=== PATIENT | male | born 1950 | race Caucasian/White ===

== ENCOUNTER 2021-02-18 09:55 | Day surgery (SDC) | payer BC, MEDICARE ==
[~2021-02-18] VITALS: Ht 180.3 cm; Wt 101.5 kg
[2021-02-18] VITALS (14 sets, daily range): BP systolic 102–139; BP diastolic 62–85
[2021-02-18] MEDS ORDERED: LORazepam 0.5 MG tablet PO ONE (10:20)
[2021-02-18] MEDS ORDERED: amiodarone 150mg/dext, iso-os 100 ML IV ONE (10:20)
[2021-02-18] MEDS ORDERED: atropine 0.1mg/ml 10ml syringe IV ONE (10:20)
[2021-02-18] MEDS ORDERED: diphenhydrAMINE 25mg capsule PO ONE (10:20)
[2021-02-18] MEDS ORDERED: MIDAZolam 1mg/ml 10ml vial IV ONE (10:20)
[2021-02-18] MEDS ORDERED: normal saline 1000ml 1,000 ML IV SCH (10:20)
[2021-02-18] MEDS ORDERED: morphine 10mg/ml inj. IV ONE ×2 (10:20→10:55)
[2021-02-18] MEDS ORDERED: METF-900 PO (10:47)
[2021-02-18] MEDS ORDERED: METH2.5T PO (10:47)
[2021-02-18] MEDS ORDERED: LIRA0.6P2 SUBCUT (10:47)
[2021-02-18] MEDS ORDERED: APIX5TAB3 PO (10:47)
[2021-02-18] MEDS ORDERED: SENN-263 PO (10:47)
[2021-02-18] MEDS ORDERED: CARV6.253 PO (10:47)
[2021-02-18] MEDS ORDERED: LEVE500T99 PO (10:47)
[2021-02-18] MEDS ORDERED: AMIO200T39 PO (10:47)
[2021-02-18] MEDS ORDERED: FAMO40TA58 PO (10:47)
[2021-02-18 10:52] LABS: EOSINOPHILS # (AUTO) 0.1 X10'3 (0-0.9); EOSINOPHILS % (AUTO) 1.6 % (0-6); HEMATOCRIT 27.9 % (42.0-52.0); HEMOGLOBIN 9.3 g/dl (14.0-17.9); LYMPHOCYTES # (AUTO) 1.3 X10'3 (1.1-4.8); MEAN CORPUSCULAR HEMOGLOBIN 34.2 PG (27.0-31.0); MEAN CORPUSCULAR HGB CONC 33.5 g/dL (33.0-36.5); MEAN CORPUSCULAR VOLUME 101.9 FL (78-98); MEAN PLATELET VOLUME 7.6 FL (7.4-10.4); MONOCYTES # (AUTO) 0.2 X10'3 (0-0.9); NEUTROPHILS # (AUTO) 2.2 X10'3 (1.8-7.7); NEUTROPHILS % (AUTO) 59.4 % (42-75); PLATELET COUNT 186 X10'3 (140-440); RED BLOOD COUNT 2.73 X10'6 (4.70-6.10); RED CELL DISTRIBUTION WIDTH 17.1 % (11.5-14.5); WHITE BLOOD COUNT 3.8 X10'3 (4.5-11.0)
[2021-02-18] MEDS ORDERED: CLON1PAT15 TOP (10:53)
[2021-02-18 10:58] LABS: ANION GAP 10 (8-16); BLOOD UREA NITROGEN 23 MG/DL (7-18); CALCIUM 8.4 MG/DL (8.5-10.1); CHLORIDE 102 MMOL/L (99-107); CREATININE 1.77 MG/DL (0.60-1.10); GLUCOSE 120 MG/DL (70-104); POTASSIUM 4.4 MMOL/L (3.5-5.1); SODIUM 137 MMOL/L (135-145); TOTAL CARBON DIOXIDE 24.7 MMOL/L (24-32); eGFR 38 ML/MIN
[2021-02-18] MEDS ORDERED: pneumococcal 23-VAL P-sac vacc 25 mcg/0.5ml vial IMVAC ONE (11:40)
== END 2021-02-18 13:45 | disposition home or self-care (01) ==
LOC: SSTAY O 09:55
PROVIDERS: ATTEND Internal Medicine Cardiovascular Disease
DX: I48.92 Unspecified atrial flutter (principal); E11.22 Type 2 diabetes mellitus with diabetic chronic kidney disease; I12.9 Hypertensive chronic kidney disease with stage 1 through stage 4 chronic kidney disease, or unspecified chronic kidney disease; N18.30 Chronic kidney disease, stage 3 unspecified; K21.9 Gastro-esophageal reflux disease without esophagitis; E78.5 Hyperlipidemia, unspecified; G47.33 Obstructive sleep apnea (adult) (pediatric); Z86.010 Personal history of colon polyps; M19.90 Unspecified osteoarthritis, unspecified site; M06.9 Rheumatoid arthritis, unspecified; N40.0 Benign prostatic hyperplasia without lower urinary tract symptoms; I49.5 Sick sinus syndrome; E55.9 Vitamin D deficiency, unspecified; Z86.718 Personal history of other venous thrombosis and embolism; Z86.711 Personal history of pulmonary embolism; Z79.4 Long term (current) use of insulin; Z79.899 Other long term (current) drug therapy; Z98.41 Cataract extraction status, right eye; Z98.42 Cataract extraction status, left eye; Z98.890 Other specified postprocedural states; Z23 Encounter for immunization
CPT/HCPCS: 36415; 80048; 82948; 85025; 90471; 90732; 92960; 93005; 94799; J0461; J2250; J2270; J7030

== ENCOUNTER 2021-03-09 14:29 | Emergency (ER) | payer BC, MEDICARE ==
[~2021-03-09] VITALS: Ht 172.7 cm; Wt 103.0 kg
[~2021-03-09 14:29] MED LIST: AMIO200T39 PO; APIX5TAB3 PO; CARV6.253 PO; CLON1PAT15 TOP; FAMO40TA58 PO; LEVE500T99 PO; LIRA0.6P2 SUBCUT; METF-900 PO; METH2.5T PO; SENN-263 PO
[2021-03-09 15:52] LABS: BASOPHILS % (AUTO) 0.3 % (0-1); EOSINOPHILS # (AUTO) 0.3 X10'3 (0-0.9); HEMATOCRIT 31.8 % (42.0-52.0); HEMOGLOBIN 10.5 g/dl (14.0-17.9); LYMPHOCYTES # (AUTO) 1.4 X10'3 (1.1-4.8); LYMPHOCYTES % (AUTO) 16.8 % (21-51); MEAN CORPUSCULAR HEMOGLOBIN 34.3 PG (27.0-31.0); MEAN CORPUSCULAR VOLUME 104.1 FL (78-98); MEAN PLATELET VOLUME 7.5 FL (7.4-10.4); MONOCYTES % (AUTO) 0.6 % (2-12); NEUTROPHILS # (AUTO) 6.6 X10'3 (1.8-7.7); NEUTROPHILS % (AUTO) 79.3 % (42-75); PLATELET COUNT 238 X10'3 (140-440); RED BLOOD COUNT 3.06 X10'6 (4.70-6.10); RED CELL DISTRIBUTION WIDTH 15.7 % (11.5-14.5); WHITE BLOOD COUNT 8.4 X10'3 (4.5-11.0)
[2021-03-09 16:04] LABS: ALANINE AMINOTRANSFERASE 40 U/L (12-78); ALBUMIN 3.2 G/DL (3.4-5.0); ALBUMIN/GLOBULIN RATIO 0.8 (1.1-1.5); ALKALINE PHOSPHATASE 136 IU/L (46-116); ANION GAP 9 (8-16); ASPARTATE AMINO TRANSFERASE 37 U/L (10-37); BILIRUBIN,TOTAL 0.9 MG/DL (0.1-1.0); BLOOD UREA NITROGEN 29 MG/DL (7-18); BUN/CREATININE RATIO 16.4 (5.4-32.0); CALCIUM 8.4 MG/DL (8.5-10.1); CHLORIDE 103 MMOL/L (99-107); CREATININE 1.77 MG/DL (0.60-1.10); GLUCOSE 136 MG/DL (70-104); POTASSIUM 4.4 MMOL/L (3.5-5.1); SODIUM 139 MMOL/L (135-145); TOTAL CARBON DIOXIDE 27.1 MMOL/L (24-32); TOTAL PROTEIN 7.3 G/DL (6.4-8.2); eGFR 38 ML/MIN
--- NOTE | 2021-03-09 17:12 | NUR ---
PATIENT AMBULATED WITH PULSE OXIMETER INTACT. HR FROM 60-77 AND O2 SAT 92-99% DURING ACTIVITY. TOLERATED WELL. ASSISTED BACK TO [facility] WITH AT BEDSIDE.
[2021-03-09 17:34] VITALS: BP 122/66
== END 2021-03-09 17:36 | disposition home or self-care (01) ==
LOC: ER 14:30
DX: R00.1 Bradycardia, unspecified (principal); Z20.822 Contact with and (suspected) exposure to COVID-19; R06.02 Shortness of breath; R53.1 Weakness; R53.83 Other fatigue; I48.91 Unspecified atrial fibrillation; E11.9 Type 2 diabetes mellitus without complications; Z86.711 Personal history of pulmonary embolism; Z86.718 Personal history of other venous thrombosis and embolism; Z79.899 Other long term (current) drug therapy
CPT/HCPCS: 36415; 71045; 80053; 83880; 84484; 85025; 87635; 93005; 99285; C9803

== ENCOUNTER 2021-03-24 13:17 | Inpatient (IN) | payer BC, MEDICARE ==
[~2021-03-24] VITALS: Ht 172.7 cm; Wt 110.1 kg
--- NOTE | 2021-03-24 14:03 | NUR ---
[id number]
[2021-03-24 14:20] LABS: BASOPHILS % (AUTO) 0.6 % (0-1); EOSINOPHILS # (AUTO) 0.1 X10'3 (0-0.9); EOSINOPHILS % (AUTO) 11.7 % (0-6); HEMATOCRIT 23.7 % (42.0-52.0); HEMOGLOBIN 7.8 g/dl (14.0-17.9); LYMPHOCYTES # (AUTO) 0.5 X10'3 (1.1-4.8); LYMPHOCYTES % (AUTO) 58.1 % (21-51); MEAN CORPUSCULAR HEMOGLOBIN 33.9 PG (27.0-31.0); MEAN CORPUSCULAR HGB CONC 32.8 g/dL (33.0-36.5); MEAN CORPUSCULAR VOLUME 103.3 FL (78-98); MEAN PLATELET VOLUME 9.1 FL (7.4-10.4); MONOCYTES % (AUTO) 1.7 % (2-12); NEUTROPHILS # (AUTO) 0.3 X10'3 (1.8-7.7); NEUTROPHILS % (AUTO) 27.9 % (42-75); RED BLOOD COUNT 2.29 X10'6 (4.70-6.10); RED CELL DISTRIBUTION WIDTH 15.7 % (11.5-14.5)
[2021-03-24 14:32] LABS: PLATELET COUNT 50 X10'3 (140-440); WHITE BLOOD COUNT 0.9 X10'3 (4.5-11.0)
[2021-03-24 14:35] LABS: ALANINE AMINOTRANSFERASE 28 U/L (12-78); ALBUMIN/GLOBULIN RATIO 0.7 (1.1-1.5); ALKALINE PHOSPHATASE 126 IU/L (46-116); ANION GAP 12 (8-16); ASPARTATE AMINO TRANSFERASE 13 U/L (10-37); BILIRUBIN,TOTAL 0.9 MG/DL (0.1-1.0); BLOOD UREA NITROGEN 66 MG/DL (7-18); BUN/CREATININE RATIO 14.9 (5.4-32.0); CALCIUM 8.9 MG/DL (8.5-10.1); CHLORIDE 103 MMOL/L (99-107); CREATININE 4.42 MG/DL (0.60-1.10); GLUCOSE 127 MG/DL (70-104); POTASSIUM 5.4 MMOL/L (3.5-5.1); SODIUM 133 MMOL/L (135-145); TOTAL CARBON DIOXIDE 18.1 MMOL/L (24-32); TOTAL PROTEIN 7.2 G/DL (6.4-8.2); eGFR 13 ML/MIN
[2021-03-24 14:48] LABS: PLATELET ESTIMATE DECREASED; TOTAL CELLS COUNTED 100
[2021-03-24 14:49] LABS: ANISOCYTOSIS 1+; BURR CELLS FEW; ELLIPTOCYTES FEW
[2021-03-24 14:50] LABS: SCHISTOCYTES FEW; TEAR DROP CELLS FEW
[2021-03-24] MEDS ORDERED: normal saline 1000ML IV soln IVB ONE (15:40)
--- NOTE | 2021-03-24 16:04 | NUR ---
PT NOW TO ROOM, ASSUMED CARE. PT STRAIGHT TO CT.
--- NOTE | 2021-03-24 16:17 | NUR ---
PT RETURNS FROM CT
--- NOTE | 2021-03-24 16:34 | NUR ---
BROUGHT PT TO ER DUE TO SEVERE WEAKNESS AND DIZZINESS TODAY. PT APPEARS PALE. AWAITING PACEMAKER
[2021-03-24] MEDS ORDERED: ondansetron/PF 4mg/2ml inj IV PRN (17:00)
[2021-03-24] MEDS ORDERED: HYDROcodone/acetaminophen 10/325mg tab PO PRN (17:00)
[2021-03-24] MEDS ORDERED: magnesium hydroxide 30ml (MOM) UD suspension PO PRN (17:00)
[2021-03-24] MEDS ORDERED: acetaminophen 325mg tablet PO PRN ×2 (17:00)
[2021-03-24] MEDS ORDERED: HYDROcodone/acetaminophen 5mg/325mg tablet PO PRN (17:00)
[2021-03-24] MEDS ORDERED: mag hydrox/Alum hydrox/simeth 30ml oral suspension PO PRN (17:00)
[2021-03-24] MEDS: normal saline 1000ml 1,000 ML IV SCH (17:00)
[2021-03-24 17:08] LABS: CLARITY,URINE SLIGHTLY CLOUDY (Clear); COLOR,URINE YELLOW (Yellow); GLUCOSE, URINE NEGATIVE (Neg); KETONES,URINE NEGATIVE (Neg); LEUKOCYTE ESTERASE ,URINE NEGATIVE (Neg); NITRITES, URINE NEGATIVE (Neg); OCCULT BLOOD,URINE NEGATIVE (Neg); PROTEIN,URINE NEGATIVE (Neg); UROBILINOGEN,URINE 0.2 E.U/dL (0.2-1.0)
[2021-03-24 17:09] LABS: UA COLLECTION TYPE NON-SPECIFIED
[2021-03-24] MEDS ORDERED: APIX5TAB3 PO (17:15)
[2021-03-24] MEDS ORDERED: AMIO200T27 PO (17:15)
[2021-03-24] MEDS ORDERED: CARV6.253 PO (17:15)
[2021-03-24] MEDS ORDERED: LIRA0.6P2 SUBCUT (17:15)
[2021-03-24] MEDS ORDERED: FAMO40TA58 PO (17:15)
[2021-03-24] MEDS ORDERED: METH2.5T PO ×2 (17:15)
[2021-03-24 17:18] LABS: BACTERIA,URINE FEW /HPF (Neg); RBC,URINE 0-2 /HPF (0-2); SQUAMOUS EPITHELIAL CELL,UR NONE SEEN /LPF (FEW); WBC,URINE 0-4 /HPF (0-4)
[2021-03-24] MEDS ORDERED: LEVE500T PO (17:20)
[2021-03-24] MEDS ORDERED: DULO60CA65 PO (17:20)
[2021-03-24] MEDS ORDERED: PANT20TA18 PO (17:20)
[2021-03-24] MEDS ORDERED: FURO-149 PO (17:20)
[2021-03-24] MEDS ORDERED: POTA10TA36 PO (17:20)
[2021-03-24] MEDS ORDERED: QUET25TA34 PO (17:20)
--- NOTE | 2021-03-24 17:36 | NUR ---
PER ERP AND RENAL MD, ONLY RUN D5 W/SODIUM BICARB. STOP NS
[2021-03-24] MEDS: sodium bicarbonate (8.4%) inj. 100 MEQ in dextrose 5%-water 1,000 ML IV SCH (17:37)
--- NOTE | 2021-03-24 17:38 | NUR ---
FIRST 1L BAG OF D5 W/SODIUM BICARB RUNNING. TOTAL 2200 NEEDED.
[2021-03-24] MEDS ORDERED: atropine 1 MG/1 ML vial IV PRN (17:45)
[2021-03-24] MEDS ORDERED: atropine 0.1mg/ml 10ml syringe IV PRN (17:55)
[2021-03-24] MEDS ORDERED: dextrose 50%-water 50ml dispensing syringe IV PRN ×2 (18:15)
[2021-03-24] MEDS ORDERED: dextrose ORAL solution 15 GM/59 ML bottle PO PRN ×2 (18:15)
[2021-03-24] MEDS ORDERED: MESSAGE TO PHARMACY PO ONE (18:15)
[2021-03-24] MEDS ORDERED: glucagon, human recombinant 1mg kit SUBCUT PRN (18:15)
--- NOTE | 2021-03-24 18:24 | NUR ---
PT FEELING DIZZY AFTER RETURNING FROM CT. WILL MEDICATED WITH PRN ATROPINE
[2021-03-24 18:28] LABS: TOTAL PROTEIN,URINE RANDOM 28.6 MG/DL
--- NOTE | 2021-03-24 18:51 | NUR ---
covid swab sent to lab
[2021-03-24 19:45] LABS: UA EOSINOPHILS NO EOS /HPF
--- NOTE | 2021-03-24 19:55 | NUR ---
, YIN, AT BEDSIDE. PT SLEEPING PEACFULLY. HR 59 AFTER RECEIVING DOSE OF ATROPINE 30 MIN AGO. AWAITING IPA. OTHER VSS.
[2021-03-24 19:59] LABS: OCCULT BLOOD STOOL NEGATIVE (Neg)
[2021-03-24 20:15] LABS: HEMOGLOBIN A1C 7.6 % (4.5-6.2)
[2021-03-24] MEDS: insulin glargine (Lantus) pen - multi-dose SQ SCH (21:00)
[2021-03-24] MEDS ORDERED: temazepam 15mg capsule PO PRN (21:00)
--- NOTE | 2021-03-24 21:15 | NUR ---
received report from luiza molina rn over the phone
--- NOTE | 2021-03-24 21:30 | NUR ---
pt was brought in bed, pt ambulated from bed to room bed
--- NOTE | 2021-03-24 21:36 | NUR ---
pt brought up by zelda evans from er at 2129
[2021-03-24 22:07] VITALS: BP 160/76
--- NOTE | 2021-03-24 22:38 | NUR ---
pt first floor glucose 119
--- NOTE | 2021-03-24 23:18 | NUR ---
notified dr gomez to get order for seroquel and cpap
--- NOTE | 2021-03-24 23:26 | NUR ---
notified RT to come and set up cpap on pt
[2021-03-24] MEDS: nystatin 15 GM powder TP SCH (23:33)
[2021-03-24] MEDS: QUEtiapine 25mg tablet PO SCH (23:33)
[2021-03-24] MEDS: levetiracetam 250mg tablet PO SCH (23:33)
[2021-03-25] MEDS: sodium bicarbonate (8.4%) inj. 100 MEQ in dextrose 5%-water 1,000 ML IV SCH (01:03)
[2021-03-25 02:00] VITALS: BP 140/82
[2021-03-25 02:18] LABS: BASOPHILS % (AUTO) 0.3 % (0-1); EOSINOPHILS # (AUTO) 0.1 X10'3 (0-0.9); EOSINOPHILS % (AUTO) 10.4 % (0-6); HEMATOCRIT 22.6 % (42.0-52.0); HEMOGLOBIN 7.6 g/dl (14.0-17.9); LYMPHOCYTES # (AUTO) 0.6 X10'3 (1.1-4.8); LYMPHOCYTES % (AUTO) 50.8 % (21-51); MEAN CORPUSCULAR HEMOGLOBIN 34.3 PG (27.0-31.0); MEAN CORPUSCULAR HGB CONC 33.8 g/dL (33.0-36.5); MEAN CORPUSCULAR VOLUME 101.3 FL (78-98); MEAN PLATELET VOLUME 9.3 FL (7.4-10.4); MONOCYTES % (AUTO) 1.6 % (2-12); NEUTROPHILS # (AUTO) 0.4 X10'3 (1.8-7.7); NEUTROPHILS % (AUTO) 36.9 % (42-75); RED BLOOD COUNT 2.23 X10'6 (4.70-6.10); RED CELL DISTRIBUTION WIDTH 15.7 % (11.5-14.5); WHITE BLOOD COUNT 1.2 X10'3 (4.5-11.0)
[2021-03-25 02:27] LABS: ALANINE AMINOTRANSFERASE 23 U/L (12-78); ALBUMIN 2.8 G/DL (3.4-5.0); ALBUMIN/GLOBULIN RATIO 0.7 (1.1-1.5); ALKALINE PHOSPHATASE 116 IU/L (46-116); ANION GAP 12 (8-16); ASPARTATE AMINO TRANSFERASE 14 U/L (10-37); BILIRUBIN,TOTAL 0.8 MG/DL (0.1-1.0); BLOOD UREA NITROGEN 65 MG/DL (7-18); BUN/CREATININE RATIO 14.8 (5.4-32.0); CALCIUM 8.4 MG/DL (8.5-10.1); CHLORIDE 102 MMOL/L (99-107); GLUCOSE 146 MG/DL (70-104); POTASSIUM 4.9 MMOL/L (3.5-5.1); SODIUM 137 MMOL/L (135-145); TOTAL CARBON DIOXIDE 23.3 MMOL/L (24-32); TOTAL PROTEIN 6.8 G/DL (6.4-8.2); eGFR 13 ML/MIN
[2021-03-25 02:30] LABS: LACTATE DEHYDROGENASE 146 U/L (85-227); PHOSPHORUS 5.7 MG/DL (2.3-4.5)
[2021-03-25 02:31] LABS: PLATELET COUNT 44 X10'3 (140-440)
--- NOTE | 2021-03-25 02:44 | NUR ---
notified dr gomez about platelet count going from 50 to 44
[2021-03-25] MEDS: normal saline 1000ml 1,000 ML IV SCH ×3 (03:00→20:43)
--- NOTE | 2021-03-25 03:19 | NUR ---
held sodium chloride at 3am. pt already running sodium bicarb @ 150/ hr and pt does have an elevated PBNP
--- NOTE | 2021-03-25 06:11 | NUR ---
Problems reprioritized. Patient report given, questions answered & plan of care reviewed with PEYMAN SIMPSON .
--- NOTE | 2021-03-25 06:20 | NUR ---
Patient in room PCU 3016. I have received report from Imer SIMPSON and had the opportunity to ask questions and assume patient care.
[2021-03-25 07:00] VITALS: BP 108/84
[2021-03-25 08:42] LABS: ALANINE AMINOTRANSFERASE 20 U/L (12-78); ALBUMIN 2.8 G/DL (3.4-5.0); ALBUMIN/GLOBULIN RATIO 0.7 (1.1-1.5); ALKALINE PHOSPHATASE 112 IU/L (46-116); ANION GAP 12 (8-16); BILIRUBIN,TOTAL 0.7 MG/DL (0.1-1.0); BLOOD UREA NITROGEN 61 MG/DL (7-18); BUN/CREATININE RATIO 13.5 (5.4-32.0); CALCIUM 8.5 MG/DL (8.5-10.1); CHLORIDE 101 MMOL/L (99-107); CREATININE 4.51 MG/DL (0.60-1.10); GLUCOSE 157 MG/DL (70-104); POTASSIUM 4.3 MMOL/L (3.5-5.1); SODIUM 138 MMOL/L (135-145); TOTAL CARBON DIOXIDE 25.1 MMOL/L (24-32); TOTAL PROTEIN 6.7 G/DL (6.4-8.2); eGFR 13 ML/MIN
[2021-03-25 09:05] LABS: ASPARTATE AMINO TRANSFERASE 15 U/L (10-37)
[2021-03-25] MEDS: nystatin 15 GM powder TP SCH ×3 (09:43→20:43)
[2021-03-25] MEDS: levetiracetam 250mg tablet PO SCH ×2 (09:43→20:43)
[2021-03-25 10:37] LABS: PARTIAL THROMBOPLASTIN TIME 29 SECONDS (22-32)
[2021-03-25 11:00] VITALS: BP 103/60
[2021-03-25 11:15] LABS: TOTAL CELLS COUNTED 100
[2021-03-25 11:16] LABS: PLATELET ESTIMATE DECREASED
[2021-03-25 11:21] LABS: BURR CELLS FEW; ELLIPTOCYTES FEW; SCHISTOCYTES FEW
[2021-03-25 11:22] LABS: TEAR DROP CELLS FEW
--- NOTE | 2021-03-25 11:42 | NUR ---
Dr. Rojas and nurse at bedside with patient. aware that Bicarb was dcd NS @100 running. Continue to support patient in keeping lab numbers in good range. We will continue to monitor.
--- NOTE | 2021-03-25 13:54 | NUR ---
DM/Ky Consults "lactose intolerant on neutropenic diet and CC": Ky 12 w/ skin intact per EMR. Pt hx T2DM A1C 7.6 this admit per EMR. Pt admit w/ ALOC DX TATUM/CKD, severe pancytopenia, and neutropenia; currently AOx1 and hx dementia per EMR. Pt not appropriate for DM ed at this time given hx and ALOC. PO 75-100% first meal this admit. To provide initial assessment on above date. Addendum: 03/25/21 at [address] Amended: Links added.
[2021-03-25 15:00] VITALS: BP 101/54
[2021-03-25 18:00] VITALS: BP_SYST 153; BP_SYST 99; BP_DIAS 54; BP_DIAS 80
[2021-03-25] MEDS ORDERED: LIDOcaine 2% 10ml TOPICAL JELLY (Urojet) TP ONE (18:10)
--- NOTE | 2021-03-25 18:12 | NUR ---
Problems reprioritized. Patient report given, questions answered & plan of care reviewed with Susan SIMPSON.
[2021-03-25] MEDS: tamsulosin 0.4mg capsule PO SCH (20:43)
[2021-03-25] MEDS: QUEtiapine 25mg tablet PO SCH (20:43)
[2021-03-25] MEDS: insulin glargine (Lantus) pen - multi-dose SQ SCH (20:47)
[2021-03-25 22:00] VITALS: BP_SYST 117; BP_SYST 142; BP_DIAS 72; BP_DIAS 77
[2021-03-26 02:00] VITALS: BP 133/85
[2021-03-26 06:00] VITALS: BP 133/52
--- NOTE | 2021-03-26 06:48 | NUR ---
Patient in room PCU 3016. I have received report from TATIANA Davis and had the opportunity to ask questions and assume patient care.
[2021-03-26] MEDS: levetiracetam 250mg tablet PO SCH ×2 (07:52→20:14)
[2021-03-26 08:13] LABS: ALANINE AMINOTRANSFERASE 23 U/L (12-78); ALBUMIN 2.5 G/DL (3.4-5.0); ALBUMIN/GLOBULIN RATIO 0.7 (1.1-1.5); ALKALINE PHOSPHATASE 105 IU/L (46-116); ANION GAP 15 (8-16); ASPARTATE AMINO TRANSFERASE 14 U/L (10-37); BILIRUBIN,TOTAL 0.7 MG/DL (0.1-1.0); BLOOD UREA NITROGEN 62 MG/DL (7-18); BUN/CREATININE RATIO 13.1 (5.4-32.0); CALCIUM 8.4 MG/DL (8.5-10.1); CHLORIDE 103 MMOL/L (99-107); CREATININE 4.75 MG/DL (0.60-1.10); GLUCOSE 126 MG/DL (70-104); POTASSIUM 4.3 MMOL/L (3.5-5.1); SODIUM 137 MMOL/L (135-145); TOTAL CARBON DIOXIDE 19.3 MMOL/L (24-32); TOTAL PROTEIN 6.3 G/DL (6.4-8.2); eGFR 12 ML/MIN
[2021-03-26 08:48] LABS: BASOPHILS % (AUTO) 0.2 % (0-1); EOSINOPHILS # (AUTO) 0.2 X10'3 (0-0.9); EOSINOPHILS % (AUTO) 12.2 % (0-6); HEMATOCRIT 22.2 % (42.0-52.0); HEMOGLOBIN 7.5 g/dl (14.0-17.9); LYMPHOCYTES # (AUTO) 0.9 X10'3 (1.1-4.8); LYMPHOCYTES % (AUTO) 46.4 % (21-51); MEAN CORPUSCULAR HEMOGLOBIN 34.2 PG (27.0-31.0); MEAN CORPUSCULAR HGB CONC 33.8 g/dL (33.0-36.5); MEAN CORPUSCULAR VOLUME 101.2 FL (78-98); MEAN PLATELET VOLUME 8.2 FL (7.4-10.4); MONOCYTES # (AUTO) 0.1 X10'3 (0-0.9); MONOCYTES % (AUTO) 3.2 % (2-12); NEUTROPHILS # (AUTO) 0.7 X10'3 (1.8-7.7); RED BLOOD COUNT 2.19 X10'6 (4.70-6.10); RED CELL DISTRIBUTION WIDTH 15.8 % (11.5-14.5); WHITE BLOOD COUNT 1.9 X10'3 (4.5-11.0)
[2021-03-26 08:55] LABS: PLATELET COUNT 32 X10'3 (140-440)
[2021-03-26] MEDS: nystatin 15 GM powder TP SCH ×3 (08:55→20:14)
[2021-03-26] MEDS: normal saline 1000ml 1,000 ML IV SCH ×2 (09:00→21:56)
--- NOTE | 2021-03-26 09:08 | NUR ---
notified. PAGER ID: [phone] MESSAGE: [id number]. Mark Anthony Bae. Critical value; Plt is 32. Thanks ashley. [phone].
[2021-03-26 10:05] LABS: PLATELET ESTIMATE DECREASED; TOTAL CELLS COUNTED 100
[2021-03-26 10:11] LABS: ELLIPTOCYTES 1+; SCHISTOCYTES FEW
[2021-03-26 11:00] VITALS: BP 105/69
[2021-03-26 15:00] VITALS: BP 127/58
[2021-03-26 18:00] VITALS: BP 158/77
--- NOTE | 2021-03-26 18:15 | NUR ---
Patient in room PCU 3016. I have received report from TATIANA Jarrett and had the opportunity to ask questions and assume patient care.
--- NOTE | 2021-03-26 18:20 | NUR ---
Problems reprioritized. Patient report given, questions answered & plan of care reviewed with TATIANA Davis.
--- NOTE | 2021-03-26 18:30 | NUR ---
Patient in room PCU 3016. I have received report from Luiza SIMPSON and had the opportunity to ask questions and assume patient care.
--- NOTE | 2021-03-26 19:07 | NUR ---
Pts 1700 Blood sugar was 166, noon blood sugar was 193 qualifying him for the hyper/hypoglycemic protocol but the pts dinner tray was picked up and meal was not documented so I had no idea what meal percentage of each food was consumed. Pt is not A&O enough to recall meal consumption. Not initiating protocol at this time, will continue to monitor pt, I will recheck blood sugar at 2100 and reassess insulin administration at that time. Pt is awake and alert, verbal no s/s or c/o of discomfort at this time.
[2021-03-26] MEDS: tamsulosin 0.4mg capsule PO SCH (20:14)
[2021-03-26] MEDS: QUEtiapine 25mg tablet PO SCH (20:14)
[2021-03-26] MEDS: insulin glargine (Lantus) pen - multi-dose SQ SCH (21:21)
[2021-03-26 22:00] VITALS: BP 155/76
[2021-03-27 02:00] VITALS: BP 146/82
--- NOTE | 2021-03-27 04:25 | NUR ---
Orientee documentation: I have reviewed and agree with all interventions, assessments performed and documented by Jesus SIMPSON.
--- NOTE | 2021-03-27 05:38 | NUR ---
Student Medication Administration: For this medication-pass time frame [id number], all medication were reviewed, dispensed, administered and documented per hospital policy by Jesus SIMPSON.
[2021-03-27 06:00] VITALS: BP 177/89
--- NOTE | 2021-03-27 06:14 | NUR ---
Problems reprioritized. Patient report given, TATIANA Jarrett questions answered & plan of care reviewed with .
--- NOTE | 2021-03-27 06:30 | NUR ---
Patient in room PCU 3016. I have received report from Holley RN and had the opportunity to ask questions and assume patient care.
[2021-03-27] MEDS: levetiracetam 250mg tablet PO SCH ×2 (07:35→19:32)
[2021-03-27] MEDS: nystatin 15 GM powder TP SCH ×3 (07:37→22:01)
[2021-03-27 07:51] LABS: BASOPHILS % (AUTO) 0.3 % (0-1); EOSINOPHILS # (AUTO) 0.3 X10'3 (0-0.9); EOSINOPHILS % (AUTO) 16.2 % (0-6); HEMATOCRIT 22.5 % (42.0-52.0); HEMOGLOBIN 7.5 g/dl (14.0-17.9); LYMPHOCYTES # (AUTO) 0.7 X10'3 (1.1-4.8); LYMPHOCYTES % (AUTO) 38.8 % (21-51); MEAN CORPUSCULAR HEMOGLOBIN 34.2 PG (27.0-31.0); MEAN CORPUSCULAR HGB CONC 33.3 g/dL (33.0-36.5); MEAN CORPUSCULAR VOLUME 102.6 FL (78-98); MEAN PLATELET VOLUME 8.5 FL (7.4-10.4); MONOCYTES # (AUTO) 0.1 X10'3 (0-0.9); MONOCYTES % (AUTO) 5.7 % (2-12); NEUTROPHILS # (AUTO) 0.7 X10'3 (1.8-7.7); RED BLOOD COUNT 2.19 X10'6 (4.70-6.10); RED CELL DISTRIBUTION WIDTH 15.7 % (11.5-14.5); WHITE BLOOD COUNT 1.9 X10'3 (4.5-11.0)
[2021-03-27 08:15] LABS: PLATELET COUNT 36 X10'3 (140-440)
[2021-03-27 08:23] LABS: ALANINE AMINOTRANSFERASE 28 U/L (12-78); ALBUMIN 2.7 G/DL (3.4-5.0); ALBUMIN/GLOBULIN RATIO 0.7 (1.1-1.5); ALKALINE PHOSPHATASE 112 IU/L (46-116); ANION GAP 12 (8-16); ASPARTATE AMINO TRANSFERASE 13 U/L (10-37); BILIRUBIN,TOTAL 0.6 MG/DL (0.1-1.0); BLOOD UREA NITROGEN 63 MG/DL (7-18); BUN/CREATININE RATIO 11.6 (5.4-32.0); CALCIUM 8.6 MG/DL (8.5-10.1); CHLORIDE 106 MMOL/L (99-107); CREATININE 5.41 MG/DL (0.60-1.10); GLUCOSE 158 MG/DL (70-104); POTASSIUM 4.2 MMOL/L (3.5-5.1); SODIUM 140 MMOL/L (135-145); TOTAL CARBON DIOXIDE 21.8 MMOL/L (24-32); TOTAL PROTEIN 6.7 G/DL (6.4-8.2); eGFR 10 ML/MIN
[2021-03-27 09:41] LABS: ANISOCYTOSIS 1+; PLATELET ESTIMATE DECREASED; SCHISTOCYTES FEW; TOTAL CELLS COUNTED 100
[2021-03-27 09:42] LABS: ELLIPTOCYTES FEW
[2021-03-27] MEDS: insulin Lispro (HumaLOG) vial - multi-dose SQ SCH ×3 (09:50→19:35)
[2021-03-27 11:00] VITALS: BP 133/73
--- NOTE | 2021-03-27 11:41 | NUR ---
notified PAGER ID: [phone] MESSAGE: [phone] Mark Anthony Breaux had a large clear gelatinous stool this morning while going to toilet. Sample was collected would you like to order a stool sample or would you like anything else done at this time? Susan [phone]
--- NOTE | 2021-03-27 11:42 | NUR ---
Received call back @ [phone] Briceno regarding gelatinous stool. stated nothing needed to be done for gelatinous stool at this time.
[2021-03-27] MEDS: normal saline 1000ml 1,000 ML IV SCH ×2 (12:14→22:01)
[2021-03-27 15:00] VITALS: BP 150/71
[2021-03-27] MEDS ORDERED: methylnaltrexone br 12mg/0.6ml inj***SubQ only SQ PRN ×2 (16:00→21:20)
--- NOTE | 2021-03-27 16:20 | NUR ---
Paged Dr. Briceno regarding ordering the CT abdomen to include the pelvis. PAGER ID: [phone] MESSAGE: [phone]. HANS PULLIAM. The order is for suspected colitis. May I change the CT abdomen to include the pelvis? Thank you. Katty SIMPSON x [phone]
--- NOTE | 2021-03-27 16:35 | NUR ---
notified. PAGER ID: [phone] MESSAGE: RE: Mark Anthony Bae. [phone]. calibration laboratory technician recommending CT abd/pelvis for full visual of colon. Can I reorder the CT or would you like just and abdomen? thanks. Luiza. [phone].
[2021-03-27] MEDS ORDERED: LORazepam 2 mg/ml vial IV PRN (17:50)
[2021-03-27 18:00] VITALS: BP 158/81
--- NOTE | 2021-03-27 18:21 | NUR ---
Awaiting MD response. PAGER ID: [phone] MESSAGE: Re: [phone] results in. Thanks. Jarrett. [phone].
--- NOTE | 2021-03-27 18:27 | NUR ---
Problems reprioritized. Patient report given, questions answered & plan of care reviewed with TATIANA Rodriguez.
[2021-03-27 22:00] VITALS: BP 151/75
[2021-03-27] MEDS: tamsulosin 0.4mg capsule PO SCH (22:01)
[2021-03-27] MEDS: insulin glargine (Lantus) pen - multi-dose SQ SCH (22:04)
[2021-03-27] MEDS: metroNIDAZOLE-Flagyl 500mg/NS 100 ML IV SCH (22:30)
[2021-03-28 02:00] VITALS: BP 144/73
[2021-03-28] MEDS: normal saline 1000ml 1,000 ML IV SCH ×2 (03:00→12:58)
[2021-03-28 06:00] VITALS: BP 147/71
--- NOTE | 2021-03-28 06:24 | NUR ---
Patient in room PCU 3016. I have received report from Michael SIMPSON and had the opportunity to ask questions and assume patient care.
[2021-03-28 07:32] LABS: BASOPHILS % (AUTO) 0.2 % (0-1); EOSINOPHILS # (AUTO) 0.3 X10'3 (0-0.9); EOSINOPHILS % (AUTO) 14.1 % (0-6); HEMOGLOBIN 7.3 g/dl (14.0-17.9); LYMPHOCYTES % (AUTO) 39.6 % (21-51); MEAN CORPUSCULAR HEMOGLOBIN 34.5 PG (27.0-31.0); MEAN CORPUSCULAR HGB CONC 33.5 g/dL (33.0-36.5); MEAN CORPUSCULAR VOLUME 103.1 FL (78-98); MEAN PLATELET VOLUME 10.2 FL (7.4-10.4); MONOCYTES # (AUTO) 0.3 X10'3 (0-0.9); MONOCYTES % (AUTO) 12.4 % (2-12); NEUTROPHILS # (AUTO) 0.8 X10'3 (1.8-7.7); NEUTROPHILS % (AUTO) 33.7 % (42-75); RED BLOOD COUNT 2.11 X10'6 (4.70-6.10); RED CELL DISTRIBUTION WIDTH 15.8 % (11.5-14.5); WHITE BLOOD COUNT 2.4 X10'3 (4.5-11.0)
[2021-03-28 07:36] LABS: HEMATOCRIT 21.7 % (42.0-52.0)
[2021-03-28 07:37] LABS: PLATELET COUNT 42 X10'3 (140-440)
--- NOTE | 2021-03-28 07:44 | NUR ---
Critical Lab Value. Dr. Briceno paged "RE: Mark Anthony Nichols RM 8186L: Critical lab values: PLT: 42 (up from 36); Hgb: 7.3 (no change); HCT: 21.7 (down from 23.5), WBC up to 2.4 from 1.9. Thanks, Catia #[phone]". continue with neutropenic precautions.
[2021-03-28 07:50] LABS: ALANINE AMINOTRANSFERASE 27 U/L (12-78); ALBUMIN 2.5 G/DL (3.4-5.0); ALBUMIN/GLOBULIN RATIO 0.7 (1.1-1.5); ALKALINE PHOSPHATASE 100 IU/L (46-116); ANION GAP 12 (8-16); ASPARTATE AMINO TRANSFERASE 13 U/L (10-37); BILIRUBIN,TOTAL 0.5 MG/DL (0.1-1.0); BLOOD UREA NITROGEN 59 MG/DL (7-18); BUN/CREATININE RATIO 10.6 (5.4-32.0); CALCIUM 8.3 MG/DL (8.5-10.1); CHLORIDE 107 MMOL/L (99-107); CREATININE 5.54 MG/DL (0.60-1.10); GLUCOSE 202 MG/DL (70-104); SODIUM 139 MMOL/L (135-145); TOTAL CARBON DIOXIDE 19.8 MMOL/L (24-32); TOTAL PROTEIN 6.2 G/DL (6.4-8.2); eGFR 10 ML/MIN
[2021-03-28 08:10] LABS: ANISOCYTOSIS 1+; PLATELET ESTIMATE DECREASED; TOTAL CELLS COUNTED 100
[2021-03-28 08:11] LABS: ELLIPTOCYTES FEW; POLYCHROMASIA FEW
[2021-03-28] MEDS: levetiracetam 250mg tablet PO SCH (08:28)
[2021-03-28] MEDS: metroNIDAZOLE-Flagyl 500mg/NS 100 ML IV SCH ×2 (08:29→21:59)
[2021-03-28] MEDS: nystatin 15 GM powder TP SCH ×3 (08:35→22:00)
[2021-03-28] MEDS: insulin Lispro (HumaLOG) vial - multi-dose SQ SCH ×3 (08:50→19:45)
[2021-03-28 11:00] VITALS: BP 128/80
[2021-03-28 15:00] VITALS: BP 142/76
--- NOTE | 2021-03-28 17:44 | NUR ---
Nuc Med called. Nuc med called and explained that the renal study will not be read until the morning due to the scan being so specialized and thus specialized radiologist to read the results will not be available until the am.
[2021-03-28 18:00] VITALS: BP 160/95
--- NOTE | 2021-03-28 18:22 | NUR ---
Problems reprioritized. Patient report given, questions answered & plan of care reviewed with Mary SIMPSON.
--- NOTE | 2021-03-28 18:40 | NUR ---
Patient in room PCU 3016. I have received report from Alyse SIMPSON and had the opportunity to ask questions and assume patient care.
[2021-03-28 22:00] VITALS: BP 153/79
[2021-03-28] MEDS: tamsulosin 0.4mg capsule PO SCH (22:00)
[2021-03-28] MEDS: insulin glargine (Lantus) pen - multi-dose SQ SCH (23:46)
[2021-03-29 02:00] VITALS: BP 160/78
[2021-03-29] MEDS: normal saline 1000ml 1,000 ML IV SCH ×3 (02:00→15:56)
[2021-03-29 06:00] VITALS: BP 164/89
--- NOTE | 2021-03-29 06:23 | NUR ---
Patient in room PCU 3016. I have received report from Mary SIMPSON and had the opportunity to ask questions and assume patient care.
[2021-03-29 07:23] LABS: BASOPHILS % (AUTO) 0.6 % (0-1); EOSINOPHILS # (AUTO) 0.2 X10'3 (0-0.9); EOSINOPHILS % (AUTO) 9.9 % (0-6); HEMOGLOBIN 7.1 g/dl (14.0-17.9); LYMPHOCYTES # (AUTO) 0.8 X10'3 (1.1-4.8); LYMPHOCYTES % (AUTO) 40.4 % (21-51); MEAN CORPUSCULAR HEMOGLOBIN 34.5 PG (27.0-31.0); MEAN CORPUSCULAR VOLUME 101.7 FL (78-98); MONOCYTES # (AUTO) 0.3 X10'3 (0-0.9); MONOCYTES % (AUTO) 16.9 % (2-12); NEUTROPHILS # (AUTO) 0.6 X10'3 (1.8-7.7); NEUTROPHILS % (AUTO) 32.2 % (42-75); PLATELET COUNT 71 X10'3 (140-440); RED BLOOD COUNT 2.05 X10'6 (4.70-6.10); RED CELL DISTRIBUTION WIDTH 15.7 % (11.5-14.5)
[2021-03-29 07:27] LABS: ALANINE AMINOTRANSFERASE 26 U/L (12-78); ALBUMIN 2.5 G/DL (3.4-5.0); ALBUMIN/GLOBULIN RATIO 0.6 (1.1-1.5); ALKALINE PHOSPHATASE 100 IU/L (46-116); ANION GAP 13 (8-16); ASPARTATE AMINO TRANSFERASE 14 U/L (10-37); BILIRUBIN,TOTAL 0.6 MG/DL (0.1-1.0); BLOOD UREA NITROGEN 54 MG/DL (7-18); BUN/CREATININE RATIO 10.1 (5.4-32.0); CALCIUM 8.3 MG/DL (8.5-10.1); CHLORIDE 107 MMOL/L (99-107); CREATININE 5.34 MG/DL (0.60-1.10); GLUCOSE 120 MG/DL (70-104); SODIUM 139 MMOL/L (135-145); TOTAL CARBON DIOXIDE 18.6 MMOL/L (24-32); TOTAL PROTEIN 6.4 G/DL (6.4-8.2); eGFR 11 ML/MIN
--- NOTE | 2021-03-29 07:41 | NUR ---
Problems reprioritized. Patient report given, questions answered & plan of care reviewed with Chloé SIMPSON.
[2021-03-29 08:40] LABS: HEMATOCRIT 20.9 % (42.0-52.0)
[2021-03-29 08:47] LABS: TOTAL CELLS COUNTED 100
[2021-03-29 08:48] LABS: ELLIPTOCYTES FEW; PLATELET ESTIMATE DECREASED; POLYCHROMASIA FEW; TEAR DROP CELLS 1+
--- NOTE | 2021-03-29 08:57 | NUR ---
Page Sent promotional table spacer PAGER ID: [phone] MESSAGE: [id number] Catalino. Critical HCT 20.9. Chloé [phone]
[2021-03-29] MEDS: levetiracetam 250mg tablet PO SCH (09:05)
[2021-03-29] MEDS: metroNIDAZOLE-Flagyl 500mg/NS 100 ML IV SCH (09:05)
[2021-03-29] MEDS: nystatin 15 GM powder TP SCH ×2 (09:09→13:12)
[2021-03-29] MEDS: insulin Lispro (HumaLOG) vial - multi-dose SQ SCH ×2 (10:28→14:02)
[2021-03-29 11:00] VITALS: BP 153/94
--- NOTE | 2021-03-29 13:33 | NUR ---
PAGER ID: [phone] MESSAGE: patient Mark Anthony Nichols Room 3013L has had intermittent Wenckebach. Also he takes seroquel according to his spouse. He is becoming agitated and wants to speak with you. Thanks Chloé ext [phone]
[2021-03-29] MEDS ORDERED: tamsulosin capsule PO (13:49)
--- NOTE | 2021-03-29 14:18 | NUR ---
Initial: Pt admit DX pancytopenia w/ neutropenia possibly r/t meds, TATUM w/ CKD, DM, acute colitis, dementia currently stable, and thyroid nodule this admit per MD note. Pt PO 75-100% avg carb controlled/neutropenic diet meeting needs. LBM 03/27. No nutrition intervention at this time. Will continue to monitor. Rec: 1. continue carb controlled/neutropenic diet per MD 2. routine bowel care 3. weekly wts Addendum: 03/29/21 at [address] Amended: Links added.
--- NOTE | 2021-03-29 16:07 | NUR ---
Patient stable for discharge per MD orders. PIV DC'd with cannula intact, tele DC'd as well. Patient discharged home with indwelling arango catheter with instructions for care and possible complications explained. Both patient and his son "Lizandro" verbalized understanding of discharge instructions, arango catheter and medication regimine. Patient agreed to make follow up appointment with his primary caregiver within a week. Patient was taken to the car via wheelchair and sent home with his son.
[2021-03-29] MEDS ORDERED: metroNIDAZOLE 500mg tablet PO SCH (20:00)
== END 2021-03-29 16:01 | disposition home health service (06) | DRG 689 ==
LOC: ER 13:18 → ED HOLD 17:00 → PCU 3S 22:01
PROVIDERS: ADMIT Family Medicine; ATTEND Family Medicine
DX: N10 Acute pyelonephritis (principal); D61.811 Other drug-induced pancytopenia; E87.1 Hypo-osmolality and hyponatremia; E04.2 Nontoxic multinodular goiter; E11.22 Type 2 diabetes mellitus with diabetic chronic kidney disease; E78.5 Hyperlipidemia, unspecified; E86.0 Dehydration; E87.5 Hyperkalemia; F03.90 Unspecified dementia, unspecified severity, without behavioral disturbance, psychotic disturbance, mood disturbance, and anxiety; G47.33 Obstructive sleep apnea (adult) (pediatric); I12.9 Hypertensive chronic kidney disease with stage 1 through stage 4 chronic kidney disease, or unspecified chronic kidney disease; I48.91 Unspecified atrial fibrillation; K59.00 Constipation, unspecified; M06.9 Rheumatoid arthritis, unspecified; N17.9 Acute kidney failure, unspecified; N18.30 Chronic kidney disease, stage 3 unspecified; N40.1 Benign prostatic hyperplasia with lower urinary tract symptoms; R33.8 Other retention of urine; Z79.01 Long term (current) use of anticoagulants; Z86.711 Personal history of pulmonary embolism; Z86.718 Personal history of other venous thrombosis and embolism; Z87.19 Personal history of other diseases of the digestive system; Z87.891 Personal history of nicotine dependence; Z95.0 Presence of cardiac pacemaker; Z20.822 Contact with and (suspected) exposure to COVID-19; T45.1X5A Adverse effect of antineoplastic and immunosuppressive drugs, initial encounter; Y92.89 Other specified places as the place of occurrence of the external cause
CPT/HCPCS: 36415; 70450; 71045; 71250; 74176; 76775; 78707; 80053; 80177; 81001; 82272; 82570; 82948; 83036; 83605; 83615; 83880; 83935; 84100; 84133; 84145; 84156; 84300; 84443; 84484; 84540; 85007; 85025; 85610; 85730; 87040; 87081; 87207; 87635; 93005; 94660; 94760; 96360; 97110; 97116; 97161; 97530; 97535; 99291; A9539; G0378; J0461; J1815; J3490; J7030; J7070

== ENCOUNTER 2021-09-07 15:26 | Inpatient (IN) | payer BC, MEDICARE ==
[~2021-09-07] VITALS: Ht 172.7 cm; Wt 102.0 kg
[~2021-09-07 15:26] MED LIST changes: -AMIO200T39 PO; -APIX5TAB3 PO; -CARV6.253 PO; -CLON1PAT15 TOP; -FAMO40TA58 PO; +LEVE500T PO; -LEVE500T99 PO; -METF-900 PO; -METH2.5T PO; -SENN-263 PO; +tamsulosin capsule PO
[2021-09-07] MEDS ORDERED: heparin 10,000 units/1 ML INJ IV PRN (15:50)
[2021-09-07] MEDS ORDERED: heparin 25,000 UNIT/250ml bag 250 ML IV SCH (16:00)
[2021-09-07 16:16] LABS: BASOPHILS % (AUTO) 0.8 % (0-1); EOSINOPHILS # (AUTO) 0.1 X10'3 (0-0.9); HEMATOCRIT 24.4 % (42.0-52.0); HEMOGLOBIN 8.2 g/dl (14.0-17.9); LYMPHOCYTES # (AUTO) 1.6 X10'3 (1.1-4.8); LYMPHOCYTES % (AUTO) 26.5 % (21-51); MEAN CORPUSCULAR HEMOGLOBIN 32.2 PG (27.0-31.0); MEAN CORPUSCULAR HGB CONC 33.4 g/dL (33.0-36.5); MEAN CORPUSCULAR VOLUME 96.3 FL (78-98); MEAN PLATELET VOLUME 6.5 FL (7.4-10.4); MONOCYTES # (AUTO) 0.7 X10'3 (0-0.9); NEUTROPHILS # (AUTO) 3.7 X10'3 (1.8-7.7); NEUTROPHILS % (AUTO) 59.7 % (42-75); PLATELET COUNT 191 X10'3 (140-440); RED BLOOD COUNT 2.54 X10'6 (4.70-6.10); WHITE BLOOD COUNT 6.2 X10'3 (4.5-11.0)
[2021-09-07 16:28] LABS: PARTIAL THROMBOPLASTIN TIME 55 SECONDS (22-32)
[2021-09-07 16:29] LABS: ALANINE AMINOTRANSFERASE 7 U/L (12-78); ALBUMIN 2.4 G/DL (3.4-5.0); ALBUMIN/GLOBULIN RATIO 0.6 (1.1-1.5); ALKALINE PHOSPHATASE 106 IU/L (46-116); ANION GAP 10 (8-16); ASPARTATE AMINO TRANSFERASE 14 U/L (10-37); BILIRUBIN,TOTAL 0.4 MG/DL (0.1-1.0); BLOOD UREA NITROGEN 46 MG/DL (7-18); BUN/CREATININE RATIO 7.7 (5.4-32.0); CHLORIDE 101 MMOL/L (99-107); GLUCOSE 133 MG/DL (70-104); MAGNESIUM 2.2 MG/DL (1.5-2.4); POTASSIUM 4.5 MMOL/L (3.5-5.1); SODIUM 139 MMOL/L (135-145); TOTAL CARBON DIOXIDE 28.2 MMOL/L (24-32); TOTAL PROTEIN 6.5 G/DL (6.4-8.2); eGFR 9 ML/MIN
[2021-09-07] MEDS ORDERED: APIX5TAB3 PO (16:35)
[2021-09-07] MEDS ORDERED: PANT40TA54 PO (16:35)
[2021-09-07] MEDS ORDERED: LANTUS SQ (16:35)
[2021-09-07] MEDS ORDERED: FLO0.4C PO (16:35)
[2021-09-07] MEDS ORDERED: ondansetron/PF 4mg/2ml inj IV PRN (16:45)
[2021-09-07] MEDS ORDERED: HYDROcodone/acetaminophen 10/325mg tab PO PRN (16:45)
[2021-09-07] MEDS ORDERED: morphine 2 MG/ML inj. syringe IV PRN (16:45)
[2021-09-07] MEDS ORDERED: mag hydrox/Alum hydrox/simeth 30ml oral suspension PO PRN (16:45)
[2021-09-07] MEDS ORDERED: HYDROcodone/acetaminophen 5mg/325mg tablet PO PRN (16:45)
[2021-09-07] MEDS ORDERED: bisacodyl 10mg suppository rectal RC PRN (16:45)
[2021-09-07] MEDS ORDERED: acetaminophen 325mg tablet PO PRN (16:45)
[2021-09-07] MEDS ORDERED: magnesium hydroxide 30ml (MOM) UD suspension PO PRN (16:45)
[2021-09-07] MEDS: heparin 25,000 UNIT/250ml bag 250 ML IV SCH ×2 (16:48→23:40)
[2021-09-07] MEDS ORDERED: MESSAGE TO PHARMACY PO ONE (16:50)
[2021-09-07] MEDS ORDERED: dextrose ORAL solution 15 GM/59 ML bottle PO PRN ×2 (16:50)
[2021-09-07] MEDS ORDERED: dextrose 50%-water 50ml dispensing syringe IV PRN ×2 (16:50)
[2021-09-07] MEDS ORDERED: insulin Lispro (HumaLOG) vial - multi-dose SQ SCH (16:50)
[2021-09-07] MEDS ORDERED: glucagon, human recombinant 1mg kit SUBCUT PRN (16:50)
[2021-09-07] MEDS ORDERED: SULF1TAB45 PO (16:57)
[2021-09-07 17:14] LABS: HEMOGLOBIN A1C 7.6 % (4.5-6.2)
[2021-09-07 19:45] VITALS: BP 146/76
--- NOTE | 2021-09-07 19:45 | NUR ---
PATIENT ADMITTED TO ROOM 356B FROM ER FOR RIGHT UPPER EXTREMITY DVT. PLACED COMFORTABLE IN BED. VITAL SIGNS TAKEN AND RECORDED.
[2021-09-07] MEDS: docusate sod 100mg capsule PO SCH (22:46)
[2021-09-07] MEDS: insulin glargine (Lantus) pen - multi-dose SQ SCH (23:06)
[2021-09-08] VITALS: BP 157/89
[2021-09-08 06:00] VITALS: BP 147/83
[2021-09-08 06:49] LABS: BASOPHILS % (AUTO) 0.7 % (0-1); EOSINOPHILS # (AUTO) 0.1 X10'3 (0-0.9); EOSINOPHILS % (AUTO) 1.8 % (0-6); HEMATOCRIT 23.6 % (42.0-52.0); HEMOGLOBIN 7.8 g/dl (14.0-17.9); LYMPHOCYTES # (AUTO) 1.4 X10'3 (1.1-4.8); LYMPHOCYTES % (AUTO) 25.1 % (21-51); MEAN CORPUSCULAR HEMOGLOBIN 31.9 PG (27.0-31.0); MEAN CORPUSCULAR HGB CONC 32.8 g/dL (33.0-36.5); MEAN CORPUSCULAR VOLUME 97.3 FL (78-98); MEAN PLATELET VOLUME 7.1 FL (7.4-10.4); MONOCYTES # (AUTO) 0.5 X10'3 (0-0.9); MONOCYTES % (AUTO) 9.4 % (2-12); NEUTROPHILS # (AUTO) 3.6 X10'3 (1.8-7.7); PLATELET COUNT 187 X10'3 (140-440); RED BLOOD COUNT 2.43 X10'6 (4.70-6.10); RED CELL DISTRIBUTION WIDTH 16.5 % (11.5-14.5); WHITE BLOOD COUNT 5.8 X10'3 (4.5-11.0)
--- NOTE | 2021-09-08 06:50 | NUR ---
Problems reprioritized. Patient report given, questions answered & plan of care reviewed with JAYSHREE SIMPSON.
[2021-09-08 07:25] LABS: ALANINE AMINOTRANSFERASE 10 U/L (12-78); ALBUMIN 2.2 G/DL (3.4-5.0); ALBUMIN/GLOBULIN RATIO 0.5 (1.1-1.5); ALKALINE PHOSPHATASE 104 IU/L (46-116); ANION GAP 12 (8-16); ASPARTATE AMINO TRANSFERASE 13 U/L (10-37); BILIRUBIN,TOTAL 0.4 MG/DL (0.1-1.0); BLOOD UREA NITROGEN 49 MG/DL (7-18); BUN/CREATININE RATIO 7.7 (5.4-32.0); CALCIUM 8.4 MG/DL (8.5-10.1); CHLORIDE 103 MMOL/L (99-107); CHOLESTEROL 148 MG/DL (0-200); CREATININE 6.37 MG/DL (0.60-1.10); FERRITIN 893 NG/ML (26-388); GLUCOSE 132 MG/DL (70-104); HDL CHOLESTEROL 50 MG/DL (35-60); LDL CHOLESTEROL 82 MG/DL (50-100); MAGNESIUM 2.2 MG/DL (1.5-2.4); PHOSPHORUS 7.2 MG/DL (2.3-4.5); POTASSIUM 4.7 MMOL/L (3.5-5.1); SODIUM 142 MMOL/L (135-145); TOTAL CARBON DIOXIDE 26.9 MMOL/L (24-32); TOTAL PROTEIN 6.3 G/DL (6.4-8.2); TRIGLYCERIDES 30 MG/DL (20-135); eGFR 9 ML/MIN
[2021-09-08] MEDS: docusate sod 100mg capsule PO SCH ×2 (07:48→20:54)
--- NOTE | 2021-09-08 07:50 | NUR ---
heparin drip paused for the next hour ptt 101
[2021-09-08 07:57] LABS: % IRON SATURATION 52 % (11-46); IRON 72 UG/DL (53-167); TOTAL IRON BINDING CAPACITY 139 UG/DL (259-388)
[2021-09-08] MEDS ORDERED: EPOETIN ALFA-EPBX 20,000 UNIT/ML 1 ML MDV IV ONE (08:00)
[2021-09-08] MEDS ORDERED: albumin (human) 25% 100ml IV 100 ML IV PRN (08:00)
[2021-09-08] MEDS ORDERED: heparin 1,000 units/ml 10ml inj HE ONE ×2 (08:00)
[2021-09-08] MEDS: heparin 25,000 UNIT/250ml bag 250 ML IV SCH ×2 (09:02→19:24)
[2021-09-08 10:00] VITALS: BP 152/79
[2021-09-08] MEDS ORDERED: LIDOcaine 1%/PF 5ML 10 MG/ML VIAL ONE (10:59)
[2021-09-08] MEDS ORDERED: fentaNYL/PF 50MCG/1 ML 2ML syringe ONE ×2 (10:59→14:02)
[2021-09-08] MEDS ORDERED: heparin 1,000 UNITS/NS 500ml 500 ML ONE (11:00)
[2021-09-08] MEDS ORDERED: iohexol 300mg/ml 100ml inj. ONE (11:00)
[2021-09-08 11:50] LABS: PARTIAL THROMBOPLASTIN TIME 45 SECONDS (22-32)
--- NOTE | 2021-09-08 11:57 | NUR ---
heparin kept at current rate with ptt of 45
--- NOTE | 2021-09-08 13:13 | NUR ---
Per patients he has been vaccinated for Covid in January and February 2021 with the Moderna Vaccine.
--- NOTE | 2021-09-08 13:14 | NUR ---
confirmed patient should be a full code
--- NOTE | 2021-09-08 13:15 | NUR ---
Spoke to Brandy in [place] keep Heparin gtt going they will stop at procedure.
[2021-09-08] MEDS ORDERED: tPA-cathflo 2 MG/2 ml IV flush ONE (14:06)
--- NOTE | 2021-09-08 14:12 | NUR ---
Noted pt with T2DM, current A1c 7.6% stable since March of this year per EMR. Pt documented as A/O x 2 and confused per physical assessment. Attempted to place written DM education in patient's chart however patient out of room and chart not available. Will attempt at another time. Addendum: 09/08/21 at [address] Amended: Links added.
[2021-09-08] MEDS ORDERED: heparin 1,000unit/ml 10ml vial 10 ML ONE (15:15)
[2021-09-08 18:59] LABS: PARTIAL THROMBOPLASTIN TIME 86 SECONDS (22-32)
[2021-09-08 20:00] VITALS: BP_SYST 157; BP_DIAS 101; BP_DIAS 99
[2021-09-08] MEDS: insulin glargine (Lantus) pen - multi-dose SQ SCH (21:55)
[2021-09-09] VITALS: BP 149/81
[2021-09-09] MEDS: heparin 25,000 UNIT/250ml bag 250 ML IV SCH (02:12)
[2021-09-09 03:10] LABS: BASOPHILS % (AUTO) 0.6 % (0-1); EOSINOPHILS # (AUTO) 0.1 X10'3 (0-0.9); EOSINOPHILS % (AUTO) 1.7 % (0-6); HEMATOCRIT 26.1 % (42.0-52.0); HEMOGLOBIN 8.5 g/dl (14.0-17.9); LYMPHOCYTES % (AUTO) 16.7 % (21-51); MEAN CORPUSCULAR HEMOGLOBIN 31.7 PG (27.0-31.0); MEAN CORPUSCULAR HGB CONC 32.4 g/dL (33.0-36.5); MEAN CORPUSCULAR VOLUME 97.9 FL (78-98); MEAN PLATELET VOLUME 7.2 FL (7.4-10.4); MONOCYTES # (AUTO) 0.5 X10'3 (0-0.9); MONOCYTES % (AUTO) 8.9 % (2-12); NEUTROPHILS # (AUTO) 4.1 X10'3 (1.8-7.7); NEUTROPHILS % (AUTO) 72.1 % (42-75); PLATELET COUNT 201 X10'3 (140-440); RED BLOOD COUNT 2.67 X10'6 (4.70-6.10); RED CELL DISTRIBUTION WIDTH 16.2 % (11.5-14.5); WHITE BLOOD COUNT 5.7 X10'3 (4.5-11.0)
[2021-09-09 03:24] LABS: ALANINE AMINOTRANSFERASE 11 U/L (12-78); ALBUMIN 2.4 G/DL (3.4-5.0); ALBUMIN/GLOBULIN RATIO 0.5 (1.1-1.5); ALKALINE PHOSPHATASE 116 IU/L (46-116); ANION GAP 7 (8-16); ASPARTATE AMINO TRANSFERASE 15 U/L (10-37); BILIRUBIN,TOTAL 0.4 MG/DL (0.1-1.0); BLOOD UREA NITROGEN 24 MG/DL (7-18); BUN/CREATININE RATIO 6.2 (5.4-32.0); CALCIUM 8.3 MG/DL (8.5-10.1); CHLORIDE 104 MMOL/L (99-107); GLUCOSE 240 MG/DL (70-104); MAGNESIUM 2.1 MG/DL (1.5-2.4); PHOSPHORUS 3.5 MG/DL (2.3-4.5); POTASSIUM 3.9 MMOL/L (3.5-5.1); SODIUM 140 MMOL/L (135-145); TOTAL CARBON DIOXIDE 28.6 MMOL/L (24-32); TOTAL PROTEIN 6.8 G/DL (6.4-8.2); eGFR 15 ML/MIN
[2021-09-09 06:00] VITALS: BP 176/96
--- NOTE | 2021-09-09 06:30 | NUR ---
Problems reprioritized. Patient report given, questions answered & plan of care reviewed with LIANET SIMPSON.
--- NOTE | 2021-09-09 07:03 | NUR ---
Patient in room JIM 356. I have received report from Anjali Alba rn and had the opportunity to ask questions and assume patient care.
[2021-09-09] MEDS: docusate sod 100mg capsule PO SCH (07:46)
[2021-09-09] MEDS ORDERED: apixaban 5mg tablet PO ONE ×2 (09:40→10:50)
[2021-09-09] MEDS ORDERED: levetiracetam 250mg tablet PO SCH (09:50)
--- NOTE | 2021-09-09 10:10 | NUR ---
F/u: Written DM ed w/ EMILIE contact information placed in pt chart. Addendum: 09/09/21 at [address] Amended: Links added.
[2021-09-09 11:00] VITALS: BP 181/106
[2021-09-09 13:00] VITALS: BP 159/89
--- NOTE | 2021-09-09 13:45 | NUR ---
Page Sent PAGER ID: [phone] MESSAGE: 356 b Simone, will pt still be discharged today? is at bedside and was asking. thanks yudelka [phone]
[2021-09-09] MEDS ORDERED: APIX5TAB3 PO (14:03)
--- NOTE | 2021-09-09 14:44 | NUR ---
Page Sent PAGER ID: [phone] MESSAGE: 356 b Simone, wants to know if there is an alternative to Eliquis, their insurance does not cover it. [id number]
--- NOTE | 2021-09-09 15:00 | NUR ---
pt iv was dc and cannula intact. pt was stable for discharge. all discharge info was gone over with with no questions. pt was wheeled down to lobby and left in a private vehicle with .
[2021-09-09] MEDS ORDERED: apixaban 5mg tablet PO SCH ×2 (20:00)
[2021-09-09] MEDS ORDERED: pantoprazole 40mg Tablet.DR PO SCH (20:00)
[2021-09-10] MEDS ORDERED: tamsulosin 0.4mg capsule PO SCH (08:00)
[2021-09-16] MEDS ORDERED: apixaban 5mg tablet PO SCH (08:00)
== END 2021-09-09 15:00 | disposition home health service (06) | DRG 252 ==
LOC: ER 15:26 → ED HOLD 17:02 → SUR 3N 19:40
PROVIDERS: ADMIT Internal Medicine; ATTEND Internal Medicine
PROC: 05733ZZ Dilation of Right Innominate Vein, Percutaneous Approach (ICD-10-PCS; principal; 2021-09-08)
PROC: 05CY3ZZ Extirpation of Matter from Upper Vein, Percutaneous Approach (ICD-10-PCS; 2021-09-08)
PROC: B5161ZZ Fluoroscopy of Right Subclavian Vein using Low Osmolar Contrast (ICD-10-PCS; 2021-09-08)
PROC: B51M1ZZ Fluoroscopy of Right Upper Extremity Veins using Low Osmolar Contrast (ICD-10-PCS; 2021-09-08)
PROC: 3E04317 Introduction of Other Thrombolytic into Central Vein, Percutaneous Approach (ICD-10-PCS; 2021-09-08)
PROC: 5A1D70Z Performance of Urinary Filtration, Intermittent, Less than 6 Hours Per Day (ICD-10-PCS; 2021-09-08)
DX: I82.621 Acute embolism and thrombosis of deep veins of right upper extremity (principal); N18.6 End stage renal disease; G93.41 Metabolic encephalopathy; I12.0 Hypertensive chronic kidney disease with stage 5 chronic kidney disease or end stage renal disease; I48.20 Chronic atrial fibrillation, unspecified; N13.8 Other obstructive and reflux uropathy; N40.1 Benign prostatic hyperplasia with lower urinary tract symptoms; E04.1 Nontoxic single thyroid nodule; E11.22 Type 2 diabetes mellitus with diabetic chronic kidney disease; E78.00 Pure hypercholesterolemia, unspecified; D64.9 Anemia, unspecified; K21.9 Gastro-esophageal reflux disease without esophagitis; G25.71 Drug induced akathisia; H91.93 Unspecified hearing loss, bilateral; K59.00 Constipation, unspecified; E78.5 Hyperlipidemia, unspecified; F03.90 Unspecified dementia, unspecified severity, without behavioral disturbance, psychotic disturbance, mood disturbance, and anxiety; F32.A Depression, unspecified; G47.33 Obstructive sleep apnea (adult) (pediatric); M06.9 Rheumatoid arthritis, unspecified; Z86.711 Personal history of pulmonary embolism; Z86.718 Personal history of other venous thrombosis and embolism; Z99.2 Dependence on renal dialysis; Z87.19 Personal history of other diseases of the digestive system; Z87.891 Personal history of nicotine dependence; Z79.899 Other long term (current) drug therapy; Z79.4 Long term (current) use of insulin; Z87.440 Personal history of urinary (tract) infections
CPT/HCPCS: 36005; 36415; 37187; 37248; 75820; 76937; 80053; 80061; 82607; 82728; 82948; 83036; 83540; 83550; 83735; 84100; 85025; 85610; 85730; 86885; 86900; 86901; 87081; 93005; 93306; 99291; C1725; C1769; C1894; G0257; G0378; J1644; J1815; J2997; J3010; Q4081; Q9967